=== PATIENT | female | born 1980 | race Caucasian/White ===

== ENCOUNTER 2016-08-02 05:05 | Inpatient (IN) ==
[2016-07-31 10:56] LABS: MANUAL DIFF NEEDED? NO; URINE SOURCE VOIDED
[2016-07-31 11:01] LABS: BASO% 0.2 % (0.0-0.8); EOS# 0.15 X1000 (0.0-0.7); EOS% 1.7 % (0.0-10.0); HEMATOCRIT 36.1 % (37.0-47.0); HEMOGLOBIN 11.3 g/dL (12.0-16.0); IMM GRAN# 0.03 X1000 (0.0-0.04); IMM GRAN% 0.3 % (0.0-0.5); LYMPH# 2.68 X1000 (1.2-3.4); LYMPH% 29.8 % (20.5-51.1); MCH 26.3 PG (27-31); MCHC 31.3 g/dL (33-37); MONO% 4.4 % (1.7-9.3); MPV 9.7 FL (7.4-10.4); NEUT% 63.6 % (42.2-75.2); PLT 358 X1000 (130-400)
[2016-07-31 11:42] LABS: BILIRUBIN URINE NEGATIVE (NEGATIVE); BLOOD URINE 4+ (NEGATIVE); CLARITY CLEAR (CLEAR); COLOR YELLOW; GLUCOSE URINE NEGATIVE (NEGATIVE); LEUKOCYTES URINE TRACE (NEGATIVE); NITRITE URINE NEGATIVE (NEGATIVE); PROTEIN URINE NEGATIVE (NEGATIVE); SP GRAVITY URINE 1.015; URINE MICROSCOPIC NEEDED? YES; UROBILINOGEN URINE NORMAL
[2016-07-31 11:44] LABS: URINE EPITHELIAL CELLS <10 /HPF (<10); URINE RBC TNTC /HPF (<10); URINE WBC <10 /HPF (<10)
--- NOTE | 2016-08-01 13:42 | HISTORY AND PHYSICAL ---
ADMITTING DIAGNOSIS: Dysfunctional uterine bleeding with dysmenorrhea and menorrhagia. SUMMARY: Marielle Whitfield is a 36-year-old, 3, para 0-3-0-3 who is having heavy painful periods. She passes large clots of blood. She has been tried on control pills and Depo- Provera and that has failed to relieve her symptoms. We did an ultrasound which shows a 9.72 x 6.871 x 5.07 cm uterus. The right ovary contained a 4.1 x 2.8 cm simple cyst. After discussing options with the patient, she is being admitted for laparoscopic assisted vaginal hysterectomy. We will not remove her ovaries unless clinically indicated at the time of surgery. Risks of surgery including pain, bleeding, infection, bowel or bladder injury, and anesthesia complications have been discussed. Alternatives to this surgery were also discussed. PAST MEDICAL HISTORY: Patient has had 3 vaginal deliveries. She has a history of asthma. She has had a tubal sterilization procedure in the past. ALLERGIES: Sulfa drugs and penicillin. MEDICATIONS: None. PHYSICAL EXAMINATION: WEIGHT: Her weight is 274. CARDIOVASCULAR: Regular rate and rhythm without murmurs, rubs, or gallops. PULMONARY: Clear. BREASTS: No masses. ABDOMEN: Tender without rebound, rigidity, or guarding. Bowel sounds are present and normal. PELVIC: Examination shows normal external genitalia. Recent Pap smear was read as normal. The cervix is grossly free of lesions. The uterus is slightly enlarged and tender. There are no palpable adnexal masses. IMPRESSION: Dysfunctional uterine bleeding with dysmenorrhea and menorrhagia. PLAN: We will proceed with laparoscopic assisted vaginal hysterectomy. The risks, benefits and possible complications and reasonable expectations of surgery have been discussed. cc: Gab Dowd MD
[2016-08-02] MEDS ORDERED: KEFZOL 1 GM/D5W 1 GM/50 ML IVPB IV ONE (05:26)
[2016-08-02] MEDS ORDERED: LR 1,000 ML IV SCH ×3 (05:26→11:41)
[2016-08-02] MEDS ORDERED: ZEMURON ONE (06:24)
[2016-08-02] MEDS ORDERED: FENTANYL ONE (06:24)
[2016-08-02] MEDS ORDERED: VERSED ONE (06:24)
[2016-08-02] MEDS ORDERED: QUELICIN ONE (06:24)
[2016-08-02] MEDS ORDERED: XYLOCAINE-MPF 2% ONE (06:24)
[2016-08-02] MEDS ORDERED: DIPRIVAN 1% ONE ×2 (06:24→08:38)
[2016-08-02] MEDS ORDERED: NEOSTIGMINE ONE (06:26)
[2016-08-02] MEDS ORDERED: ROBINUL ONE (06:26)
[2016-08-02] MEDS ORDERED: DECADRON ONE (06:26)
[2016-08-02] MEDS ORDERED: ZOFRAN ONE (06:26)
[2016-08-02] MEDS ORDERED: TORADOL ONE (06:26)
[2016-08-02] MEDS ORDERED: SENSORCAINE 0.25%/EPI 1:200,000 ONE (06:40)
[2016-08-02] MEDS ORDERED: LR 1,000 ML ONE ×3 (06:40→09:37)
[2016-08-02] MEDS ORDERED: KEFZOL 1 GM/D5W 1 GM/50 ML IVPB ONE (06:46)
[2016-08-02 07:30] LABS: URINE MICROSCOPIC NEEDED? NO; URINE SOURCE CATH
[2016-08-02 07:52] LABS: BILIRUBIN URINE NEGATIVE (NEGATIVE); BLOOD URINE NEGATIVE (NEGATIVE); CLARITY CLEAR (CLEAR); COLOR YELLOW; GLUCOSE URINE NEGATIVE (NEGATIVE); LEUKOCYTES URINE NEGATIVE (NEGATIVE); NITRITE URINE NEGATIVE (NEGATIVE); PROTEIN URINE NEGATIVE (NEGATIVE); UROBILINOGEN URINE NORMAL
[2016-08-02] MEDS ORDERED: AMBIEN PO PRN ×2 (09:07→11:41)
[2016-08-02] MEDS ORDERED: DULCOLAX PR PRN ×2 (09:07→11:40)
[2016-08-02] MEDS ORDERED: PHENERGAN IM PRN ×2 (09:07→11:40)
[2016-08-02] MEDS ORDERED: FLEET ENEMA PR PRN ×2 (09:07→11:40)
[2016-08-02] MEDS ORDERED: NORCO-5 PO PRN ×2 (09:07→11:41)
[2016-08-02] MEDS ORDERED: LEVSIN-SL SL PRN ×2 (09:07→11:40)
[2016-08-02] MEDS ORDERED: DEMEROL IM PRN ×2 (09:07→11:40)
[2016-08-02] MEDS ORDERED: NORCO-10 PO PRN (09:07)
[2016-08-02] MEDS ORDERED: MOTRIN PO PRN (09:07)
[2016-08-02] MEDS ORDERED: DILAUDID PCA VIAL ONE (09:37)
[2016-08-02] MEDS ORDERED: EPHEDRINE ONE (09:56)
[2016-08-02] MEDS ORDERED: DILAUDID PCA VIAL IV PRN (11:41)
[2016-08-02] MEDS ORDERED: NARCAN IV PRN (11:41)
[2016-08-02] MEDS ORDERED: MYLICON PO SCH (13:00)
[2016-08-02] MEDS: MYLICON PO SCH ×3 (14:35→20:22)
[2016-08-02] MEDS ORDERED: TORADOL IV SCH (15:09)
[2016-08-02 15:15] LABS: HEMATOCRIT 34.7 % (37.0-47.0); HEMOGLOBIN 10.8 g/dL (12.0-16.0)
[2016-08-02] MEDS: LR 1,000 ML IV SCH ×2 (16:47→22:32)
[2016-08-02] MEDS: TORADOL IV SCH ×2 (16:53→22:32)
[2016-08-02] MEDS: ZOFRAN IV PRN (18:37)
[2016-08-02] MEDS: PERIDEX MT SCH (20:22)
[2016-08-02] MEDS: COLACE PO SCH (20:22)
[2016-08-02] MEDS ORDERED: COLACE PO SCH (21:00)
[2016-08-02] MEDS ORDERED: PERIDEX MT SCH (21:00)
--- NOTE | 2016-08-03 02:38 | OPERATIVE NOTE ---
PROCEDURE DATE: 08/02/2016 SURGEON: Gab Dowd MD. [employer] MACHINE HELPER: Gab Barber MD. ANESTHESIA: General endotracheal by Dr. Sandoval. OPERATION PERFORMED: Attempt at laparoscopic assisted vaginal hysterectomy followed by a total abdominal hysterectomy. PREOPERATIVE DIAGNOSES: 1. Dysfunctional uterine bleeding with dysmenorrhea and menorrhagia. 2. Right ovarian cyst. POSTOPERATIVE DIAGNOSES: 1. Dysfunctional uterine bleeding with dysmenorrhea and menorrhagia. 2. Right ovarian cyst. FINDINGS: The uterus was enlarged, hyperemic, and boggy. There was a simple cyst on the right ovary. DESCRIPTION OF PROCEDURE: The patient was taken back to the operating room and after general endotracheal anesthesia, was placed in the dorsal lithotomy position. The vagina, perineum, and abdomen were prepped and draped in usual fashion. A Ricketts catheter was placed in the urinary bladder. A periumbilical incision was made. Through this incision, the Veress needle was inserted. Pneumoperitoneum was created. Laparoscopic trocar was introduced without difficulty. Initial examination revealed no apparent blood vessel or bowel injury. We then placed 5 mm trocars on the right and 11 mm on the left sides. Through this a single-tooth tenaculum was placed and the uterus displaced to the right side beginning on the left side. The LigaSure device was used to perform a salpingectomy. Following this, the round ligament and ovarian suspensory ligament were grasped, cauterized, and excised using the LigaSure device. Next the broad ligament was grasped, cauterized, and excised. We then created a bladder flap and cauterized the uterine vessels. The same procedure was then repeated on the patient's right side by first displacing the uterus to the left with a tenaculum. There was no fimbriated end on the right side. The ovarian suspensory ligament and round ligament were grasped, cauterized, and excised using the LigaSure device. Continuing with the LigaSure device, the broad ligament was grasped, cauterized , and excised. The bladder flap was further created. The ovarian vessels on the right side were cauterized. We then removed the laparoscopic equipment. We, however, left the trocars in place. We began the vaginal procedure. A speculum was placed in the vaginal vault. The cervix was grasped with a tenaculum with no descent of the cervix noted. We created a bladder flap by injecting the anterior reflection of the vaginal mucosa with Marcaine and epinephrine solution. The anterior colporrhaphy was taken down to the endopelvic fascia. Using blunt and sharp dissection the vagina was dissected away. However, we never could identify the peritoneum. Due to lack of inability to identify the peritoneum, the decision was made to abort the vaginal hysterectomy and begin an abdominal hysterectomy. The patient was placed in the supine position. The abdomen was reprepped and draped and a Pfannenstiel incision was made. This incision was taken down to the fascia and the fascia was excised transversely. The underlying rectus muscles were bluntly and sharply dissected free. The rectus muscle was in the midline. The peritoneum was entered. The Malone self-retaining retractor was placed and the bowel was backed out of the operative field. We then used straight clamps to clamp, excise, and ligate first the cardinal and then uterosacral ligaments. We amputated the fundus of the uterus for exposure. This allowed us to clamp across the cervix and enter the vagina. The cervix was dissected away. Angle stitches placed bilaterally. The cuff was closed using a running Vicryl suture. Several figure -of-eight chromic sutures and Vicryl sutures were then used to achieve hemostasis. The pelvic cavity was irrigated with copious amounts of sterile water and again, complete hemostasis was noted. We did place Gelfoam at the cuff. All packs and instruments were removed. Initial sponge, instrument, and needle count reported as correct. The peritoneum was closed using a running chromic suture. Second sponge, instrument, and needle count was correct. The fascia was closed using running Vicryl sutures x2. The adipose tissue was reapproximated using 3-0 Vicryl suture. The incision was closed using a 3-0 Monocryl suture. The laparoscopic incision was then oversewn using Vicryl suture. Anesthesia estimated blood loss at 210 mL. There no complications. The patient was extubated and went to the recovery room in stable condition. cc: Gab Dowd MD MTDD
[2016-08-03] MEDS: ZOFRAN IV PRN (04:01)
[2016-08-03 05:23] LABS: HEMATOCRIT 31.7 % (37.0-47.0); HEMOGLOBIN 9.6 g/dL (12.0-16.0); MCH 26.2 PG (27-31); MCHC 30.3 g/dL (33-37); MCV 86.4 FL (81-99); MPV 9.5 FL (7.4-10.4); RBC 3.67 XMIL (4.2-5.4)
[2016-08-03] MEDS: TORADOL IV SCH (06:00)
[2016-08-03] MEDS: PERIDEX MT SCH ×2 (10:23→20:50)
[2016-08-03] MEDS: MYLICON PO SCH ×4 (10:23→20:50)
[2016-08-03] MEDS: COLACE PO SCH ×2 (10:23→20:50)
[2016-08-03] MEDS ORDERED: D/C PCA XX ONE (12:00)
[2016-08-03] MEDS: NORCO-10 PO PRN (14:35)
[2016-08-03] MEDS: MOTRIN PO PRN (17:04)
[2016-08-04] MEDS: MOTRIN PO PRN (02:55)
[2016-08-04] MEDS: NORCO-10 PO PRN (02:55)
--- NOTE | 2016-08-04 07:14 | DISCHARGE SUMMARY ---
ADMISSION DATE: 08/02/2016 DISCHARGE DATE: 08/04/2016 ADMITTING DIAGNOSIS: Dysfunctional uterine bleeding with dysmenorrhea and menorrhagia. PRINCIPAL DIAGNOSIS: Dysfunctional uterine bleeding with dysmenorrhea and menorrhagia. PRINCIPLE PROCEDURE: Attempt at laparoscopic assisted vaginal hysterectomy followed by a total abdominal hysterectomy. SUMMARY: Marielle Whitfield is a 36-year-old, 3, para 3, with heavy, painful periods. Medical management failed to relieve her symptoms. An ultrasound was performed which also showed a 4.1 x 2.8 cm simple cyst on the right ovary. After discussing options with the patient, she was admitted to the hospital and we began laparoscopic assisted vaginal hysterectomy. However there was no with descent of the cervix so we had to convert to an abdominal hysterectomy. There were no intraoperative complications from the surgery and postoperatively the patient has done well. She had an admission hemoglobin and hematocrit of 11.3/36.1, discharge hemoglobin and hematocrit being 9.6/31.7. On the day of discharge, cardiac and pulmonary examinations are normal. Bowel and bladder function was normal. Incision was clean and dry. She was having scant vaginal bleeding. Final pathology report is pending. Ms. Whitfield will be discharged today. We will see her back in the office in 1 week. Routine discharge instructions, activity limitations, and precautions were discussed. She is given prescriptions for [place] 10 mg #30, and Motrin for postoperative pain. cc: Gab Dowd MD
[2016-08-04 07:55] VITALS: BP 150/98
[2016-08-04] MEDS: PERIDEX MT SCH (08:45)
[2016-08-04] MEDS: MYLICON PO SCH (08:45)
[2016-08-04] MEDS: COLACE PO SCH (08:46)
== END 2016-08-04 09:05 | disposition home or self-care (01) ==
LOC: P.WC 05:05
PROVIDERS: ADMIT Obstetrics & Gynecology; ATTEND Obstetrics & Gynecology
PROC: [UNRECOGNIZED PROCEDURE] (2016-08-02 06:46)